=== PATIENT | male | born 1975 | race Caucasian/White ===

== ENCOUNTER 2018-05-07 13:32 | Emergency (ER) | payer OTHER ==
[2018-05-07 14:07] VITALS: RESP 18; TEMP 98.2
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
--- NOTE | 2018-05-07 15:28 | XR ---
EXAMINATION TYPE: XR elbow complete LT, XR forearm RT DATE OF EXAM: 05/07/2018 CLINICAL HISTORY: Left olecranon pain and right mid forearm pain after fall TECHNIQUE: Two views of the left forearm are obtained. Frontal, lateral and oblique images of the ri ght elbow are obtained. COMPARISON: None. FINDINGS: There is no acute fracture or dislocation seen in the right radius or ulna. The right elb ow and wrist joints appear within normal limits. The overlying soft tissue appears within normal oneal its. There is no acute fracture/dislocation evident in the left elbow. No abnormal fat pad signs are seen . The overlying soft tissue appears unremarkable. Mild soft tissue swelling is seen posterior to the distal left humerus. IMPRESSION: 1. No acute fracture or dislocation of the left elbow or right forearm. 2. Nonspecific soft tissue swelling seen over the distal left forearm, mild in degree. If there is pe rsistent pain repeat radiograph could be performed in 7-10 days to evaluate for occult fracture.
[2018-05-07 16:15] VITALS: BP 141/89; PULSE 72
== END 2018-05-07 16:10 | disposition home or self-care (01) ==
LOC: EC 13:32
DX: S29.9XXA Unspecified injury of thorax, initial encounter (principal); S59.912A Unspecified injury of left forearm, initial encounter; S59.911A Unspecified injury of right forearm, initial encounter; M79.89 Other specified soft tissue disorders; M79.603 Pain in arm, unspecified; R40.2412 Glasgow coma scale score 13-15, at arrival to emergency department; I10 Essential (primary) hypertension; Z79.899 Other long term (current) drug therapy; V09.9XXA Pedestrian injured in unspecified transport accident, initial encounter; Y93.89 Activity, other specified; Y92.69 Other specified industrial and construction area as the place of occurrence of the external cause; Y99.0 Civilian activity done for income or pay
CPT/HCPCS: 70450; 72125; 72128; 99284

== ENCOUNTER → 2021-02-27 | Outpatient (CLI) | payer OTHER ==
[2021-02-27 08:17] VITALS: BP 143/82; PULSE 74; RESP 18; TEMP 97.7
--- NOTE | 2021-02-27 08:28 | P.PAINCN ---
History of Present Illness - Reason for Consult Consult date: 02/27/21 - History of Present Illness This is the initial consultation visit for this 46 years old male with 10 month history of severe neck pain with radiation to the shoulder area bilaterally, with occasional numbness and tingling sensation in the upper extremity, patient denies any initiating event he denies any history of trauma, no history of heavy lifting, no history of falling, he reported that the pain is constant and inc reased with any neck movement, or any activity, interfere with the quality of life, he denies any motor or sensory deficit, intensity of the pain is 6-8/10, patient tried physical therapy for 4 months without any benefit, he tried chiropractics without any benefit, he denies any change in the bowel movement or urination, he denies any fever or night sweats Past Medical History Past Medical History: Hypertension Additional Past Medical History / Comment(s): borderline diabetic. heart burn once in a while. History of Any Multi-Drug Resistant Organisms: None Reported Past Surgical History: Orthopedic Surgery, Tonsillectomy Additional Past Surgical History / Comment(s): rt wrist carpal tunnel, lt knee. tonsilectomy Smoking Status: Never smoker Medications and Allergies Home Medications Medication Instructions Recorded Confirmed Type Losartan [Cozaar] 25 mg PO DAILY 05/07/18 05/07/18 History hydroCHLOROthiazide 25 mg PO DAILY 05/07/18 05/07/18 History metFORMIN HCL ER [Glucophage Xr] 02/27/21 History Allergies Allergy/AdvReac Type Severity Reaction Status Date / Time No Known Allergies Allergy Verified 05/07/18 14:07 Physical Exam Vitals: Vital Signs Temp Pulse Resp BP Pulse Ox 02/27/21 08:09 97.7 F 74 18 143/82 92 L Intake and Output 02/26/21 02/27/21 02/27/21 22:59 06:59 14:59 Other: Weight 131.542 kg Physical Examinations : -Constitutiona : Cooperative , not in acute distress . -HEENT : nech : supple , no Lymphadenopathy , normal thyroid size . : eyes : no ptosis , no icterus, no photophobia . - neurologic : Cranial nerve II to XII intact , no focal neurological deffecit . -psychatric : alert , oriented X 3 , appropriate affect , intact judgment and insight . -Lymphatic : no Lymphadenopathy . - musculoskeltal : Cervical Spine motor stregnth in the deltoid and biceps, normal right side , normal Left side motor stregnth biceps and the wrist extensors normal right side ,normal left side . motor stregnth in the triceps muscle . normal Right side , normal Left side deep tendon reflexes normal at the biceps , normal at Brachioradialis , normal at triceps. cervical facet loading test: Positive Bilaterally Spurling test= positive Right , positive left. Neck distraction test= positive Right , positive left. Avi sign= positive right, positive left . Lumber spine moter stegnth lower extremities ,thigh and legs 5/5 Right side , 5/5 Left side Results Comments: MRI of the cervical spine= multilevel cervical degenerative disc disease Assessment and Plan Plan: Assessment and plan=1-cervical radiculopathy. 2-cervical degenerative disc disease. 3-cervical spondylosis. Patient could benefit from cervical epidural steroid injections under fluoroscopy guidance at C6 7 or C7-T1 Time with Patient: Greater than 30 PQRS Measure Charge Sheet Measure #130: Documentation of Current Meds in Medical Chart: Patient's medications documented in chart Measure #226: Tobacco Use: Screen & Cessation Intervention: Pt not a tobacco user Measure #111: Pneumonia Vaccination: Pneumococcal vaccine NOT administered or previously given Measure #47: Advance Care Plan: Advance care planning discussed & documented, pt chose/unable to give Measure #412: Opioid Treatment Agreement: No documentation of signed opioid treatment agreement Measure #408: Opioid Therapy Follow-up Evaluation: Patient had NO f/u eval minimum every 3 months during opioid therapy Measure #317: Preventitive Care & Scrn High Bld Press & F/U: Pre-hypertensive or hypertensive BP documented, pt will f/u with PCP Measure #128: Body Mass Index (BMI) Screening & Follow-up: BMI documented ABOVE normal parameters - f/u documented Measure #131: Pain Assessment & Follow-up: Pain positive & plan documented, Follow-up scheduled Measure #431: Unhealthy Alcohol Use Preventative Care & Scrn: Patient not identified as an unhealthy alcohol user PQRS Narrative: Smoking Status Never smoker Blood Pressure 143/82 Pain Intensity [Bilateral Neck 5 ] Scale Used Numeric (1 - 10) Hx Alcohol Use (MH) Yes: occ Home Medications: Ambulatory Orders Losartan [Cozaar] 25 mg PO DAILY 05/07/18 hydroCHLOROthiazide 25 mg PO DAILY 05/07/18 metFORMIN HCL ER [Glucophage Xr] 02/27/21
== END ==
LOC: PNWHC3 07:39
PROVIDERS: ATTEND Specialist
DX: M47.22 Other spondylosis with radiculopathy, cervical region (principal); M50.30 Other cervical disc degeneration, unspecified cervical region; I10 Essential (primary) hypertension; E11.9 Type 2 diabetes mellitus without complications; Z79.84 Long term (current) use of oral hypoglycemic drugs
CPT/HCPCS: 99211

== ENCOUNTER 2021-03-12 09:12 | Day surgery (SDC) | payer OTHER ==
[~2021-03-12 09:12] MED LIST: LACTATED RINGERS 1,000 ML IV SCH
[2021-03-12 09:32] VITALS: TEMP 97.8
[2021-03-12 09:40] LABS: Glucose,Whole Blood 119 mg/dL (75-99)
[2021-03-12] MEDS ORDERED: DEXAMETHASONE SOD PHOSPHATE 10 MG/ML 1 ML VIAL ONE (10:11)
[2021-03-12] MEDS ORDERED: IOPAMIDOL M200 10 ML VIAL ONE (10:11)
--- NOTE | 2021-03-12 10:26 | P.PCN ---
Date of Procedure: 03/12/21 Procedure(s) Performed: . PROCEDURE 1. Cervical epidural steroid injection under fluoroscopic guidance, C7-T1 (fluoroscopy images available in the radiology department ) 2. Cervical epidurogram. PREOPERATIVE DIAGNOSIS: 1- Cervical Degenerative Disc Diseases 2- Cervical radiculopathy., 3-cervical spondylosis with cervical Facet arthropathy without myelopathy POSTOPERATIVE DIAGNOSIS: : 1- Cervical Degenerative Disc Diseases , 2- Cervical radiculopathy. 3-,cervical spondylosis with cervical Facet arthropathy without myelopathy ANESTHESIA: Local anesthesia with lidocaine 1 % 3 ml only. EBL 0 PROCEDURE INDICATION: The patient with neck pain and radiculitis unresponsive to conservative treatment consents for procedure. PROCEDURE DESCRIPTION / TECHNIQUE: The patient was seen and identified in the preoperative area. Risks, benefits, complications, including but not limited to infections ,bleeding , allergic reactions to the medications ,and not complete pain releife, and alternatives were discussed with the patient, the patient agreed to proceed with the procedure and signed the consent. Patient was taken to the OR and time out was completed. The patient was placed in the prone position on the procedure table. A pillow was placed under the patients chest to increase the cervical interlaminar space. The cervical area was prepped and draped in the usual sterile fashion. Vital signs were closely monitored during the procedur. Using anterior-posterior fluoroscopy, the C7-T1 interlaminar space was identified and the skin over this site was marked and then infiltrated with 1% lidocaine subcutaneously. Subsequently, a 20-gauge 3-1/2-inch Tuohy epidural needle was inserted and advanced toward the epidural space by means of the ``hanging-drop technique and guided by AP and lateral fluoroscopy. The correct needle position in the epidural space was verified with the injection of 2 mL of the water soluble contrast dye Isovue-200 and observing an excellent epidurogram with the epidural spread of the dye, after negative aspiration for blood and CSF and in the absence of paresthesias. Again after negative aspiration, mixture containing 20 mg Dexamethasone and 2 ml of preservative- free normal saline injected and a washout of epidurogram was seen. Needle was w ithdrawn intact, skin was cleansed, and bandages were applied. Complications= none. Disposition= patient was placed in supine position and transferred to the recovery room area in stable condition and there was no evidence of upper or lower extremity motor or sensory deficit after the procedure patient was discharged from recovery room after discharge criteria met and home discharge instructions was given by the staff and patient will follow with the pain clinic in 2-4 weeks
[2021-03-12 10:38] VITALS: RESP 20
[2021-03-12 10:44] VITALS: BP 156/90; PULSE 88
--- NOTE | 2021-03-12 11:45 | FL ---
EXAMINATION TYPE: FL guided pain mgmt statistic DATE OF EXAM: 03/12/2021 CLINICAL HISTORY: Neck pain. TECHNIQUE: Fluoroscopy. COMPARISON: None. FINDINGS: Fluoroscopic guidance was provided during pain relief procedure performed by Dr. Green . A total of 2 seconds of fluoroscopic time was utilized during the procedure and 1 spot image is ac quired. Single image acquired shows needle localization near cervical thoracic spine. IMPRESSION: As Above.
== END 2021-03-12 10:49 | disposition home or self-care (01) ==
LOC: ORPAIN 09:12
PROVIDERS: ATTEND Specialist
DX: M47.22 Other spondylosis with radiculopathy, cervical region (principal); M50.10 Cervical disc disorder with radiculopathy, unspecified cervical region; R73.03 Prediabetes; Z79.84 Long term (current) use of oral hypoglycemic drugs; Z79.82 Long term (current) use of aspirin
CPT/HCPCS: 62321; J1100; Q9966

== ENCOUNTER → 2021-04-08 | Outpatient (CLI) | payer BC ==
[2021-04-08 08:15] VITALS: BP 129/82; PULSE 64; RESP 18; TEMP 97.9
--- NOTE | 2021-04-08 08:37 | P.PN ---
Subjective Progress Note Date: 04/08/21 This follow-up visit for this 46 years old male with a history of severe chronic neck pain with radiation to the upper extremity mainly to the left side, he is diagnosed with cervical radiculopathy, cervical degenerative disc disease, and cervical spondylosis, recently we did cervical epidural steroid injection at C7- T1, he reported that he had almost 80% improvement of his pain, patient done physical therapy without any significant improvement, he tried the home exercises without any benefit, he tried oral steroid and muscle relaxant without any significant improvement, he continued to have some numbness and tingling sensation mainly in the left upper extremity, he denies any motor or sensory deficit, he denies any fever or night sweats, Physical Examinations : -Constitutiona : Cooperative , not in acute distress . -HEENT : nech : supple , no Lymphadenopathy , normal thyroid size . : eyes : no ptosis , no icterus, no photophobia . - neurologic : Cranial nerve II to XII intact , no focal neurological deffecit . -psychatric : alert , oriented X 3 , appropriate affect , intact judgment and insight . -Lymphatic : no Lymphadenopathy . - musculoskeltal : Cervical Spine motor stregnth in the deltoid and biceps, normal right side , normal Left side motor stregnth biceps and the wrist extensors normal right side ,normal left side . motor stregnth in the triceps muscle . normal Right side , normal Left side deep tendon reflexes normal at the biceps , normal at Brachioradialis , normal at triceps. cervical facet loading test: Positive Bilaterally Spurling test= positive Right , positive left. Neck distraction test= positive Right , positive left. Avi sign= positive right, positive left . Lumber spine moter stegnth lower extremities ,thigh and legs 5/5 Right side , 5/5 Left side Results Comments: MRI of the cervical spine= multilevel cervical degenerative disc disease Assessment and Plan Plan: Assessment and plan=1-cervical radiculopathy. 2-cervical degenerative disc disease. 3-cervical spondylosis. Patient could benefit from cervical epidural steroid injections under fluoroscopy guidance at C6 7 or C7-T1( left paramedial ) Time with Patient: less than 30 - PQRS measures = - Patient's medications are documented in the chart. -Tobacco use is negative and counseling.Given. -Patient's has not received pneumococcal vaccine. -Advanced care planning discussed, patient not eligible. -Opiate contract not signed. -Pain positive and follow-up visit/procedure is scheduled. -Patient's blood pressure measured [124/82 ] , and documented in the record ,and patient will follow up with the primary care. -Patient's weight was measured and body mass index [ 40.2] above the normal limits and counseling was done. and patient instructed to follow-up with the primary care physician. -Patient was not identified as an unhealthy alcohol user Objective - Vital Signs Vital signs: Vital Signs Temp 97.9 F 04/08/21 08:11 Pulse 64 04/08/21 08:11 Resp 18 04/08/21 08:11 BP 129/82 04/08/21 08:11 Pulse Ox 99 04/08/21 08:11
== END ==
LOC: PNWHC3 07:46
PROVIDERS: ATTEND Specialist
DX: M50.10 Cervical disc disorder with radiculopathy, unspecified cervical region (principal); M47.22 Other spondylosis with radiculopathy, cervical region
CPT/HCPCS: 99211

== ENCOUNTER 2021-05-07 12:43 | Day surgery (SDC) | payer BC ==
[2021-05-06 09:41] VITALS: BMI 40.4
[2021-05-07 13:15] VITALS: TEMP 97.2
[2021-05-07 13:19] LABS: Glucose,Whole Blood 92 mg/dL (75-99)
[2021-05-07] MEDS ORDERED: IOPAMIDOL M200 10 ML VIAL ONE (13:34)
[2021-05-07] MEDS ORDERED: DEXAMETHASONE SOD PHOSPHATE 10 MG/ML 1 ML VIAL ONE (13:34)
--- NOTE | 2021-05-07 13:46 | P.PCN ---
Date of Procedure: 05/07/21 Procedure(s) Performed: PROCEDURE 1. Cervical epidural steroid injection under fluoroscopic guidance, C7-T1 (fluoroscopy images available in the radiology department ) 2. Cervical epidurogram. PREOPERATIVE DIAGNOSIS: 1- Cervical Degenerative Disc Diseases 2- Cervical radiculopathy., 3-cervical spondylosis with cervical Facet arthropathy without myelopathy POSTOPERATIVE DIAGNOSIS: : 1- Cervical Degenerative Disc Diseases , 2- Cervical radiculopathy. 3-,cervical spondylosis with cervical Facet arthropathy without myelopathy ANESTHESIA: Local anesthesia with lidocaine 1 % 3 ml only. EBL 0 PROCEDURE INDICATION: The patient with neck pain and radiculitis unresponsive to conservative treatment consents for procedure. PROCEDURE DESCRIPTION / TECHNIQUE: The patient was seen and identified in the preoperative area. Risks, benefits, complications, including but not limited to infections ,bleeding , allergic reactions to the medications ,and not complete pain releife, and alternatives were discussed with the patient, the patient agreed to proceed with the procedure and signed the consent. Patient was taken to the OR and time out was completed. The patient was placed in the prone position on the procedure table. A pillow was placed under the patients chest to increase the cervical interlaminar space. The cervical area was prepped and draped in the usual sterile fashion. Vital signs were closely monitored during the procedur. Using anterior-posterior fluoroscopy, the C7-T1 interlaminar space was identified and the skin over this site was marked and then infiltrated with 1% lidocaine subcutaneously. Subsequently, a 20-gauge 3-1/2-inch Tuohy epidural needle was inserted and advanced toward the epidural space by means of the ``hanging-drop technique and guided by AP and lateral fluoroscopy. The correct needle position in the epidural space was verified with the injection of 2 mL of the water soluble contrast dye [id number]-200 and observing an excellent epidurogram with the epidural spread of the dye, after negative aspiration for blood and CSF and in the absence of paresthesias. Again after negative aspiration, mixture containing 20 mg Dexamethasone and 2 ml of preservative- free normal saline injected and a washout of epidurogram was seen. Needle was withdrawn intact, skin was cleansed, and bandages were applied. Complications= none. Disposition= patient was placed in supine position and transferred to the recovery room area in stable condition and there was no evidence of upper or lower extremity motor or sensory deficit after the procedure patient was discharged from recovery room after discharge criteria met and home discharge instructions was given by the staff and patient will follow with the pain clinic in 2-4 weeks
[2021-05-07 14:09] VITALS: RESP 16
[2021-05-07 14:10] VITALS: BP 136/76; PULSE 73
--- NOTE | 2021-05-07 14:51 | FL ---
EXAMINATION TYPE: FL guided pain mgmt statistic DATE OF EXAM: 05/07/2021 HISTORY: Fluoroscopy time 2 seconds of fluoroscopy provided. IMPRESSION: 1. Fluoroscopy time.
== END 2021-05-07 14:20 | disposition home or self-care (01) ==
LOC: ORPAIN 12:43
PROVIDERS: ATTEND Specialist
DX: M50.10 Cervical disc disorder with radiculopathy, unspecified cervical region (principal); M47.812 Spondylosis without myelopathy or radiculopathy, cervical region; Z79.82 Long term (current) use of aspirin; R73.03 Prediabetes
CPT/HCPCS: 62321; J1100; Q9966

== ENCOUNTER → 2021-05-27 | Outpatient (CLI) | payer BC ==
[2021-05-27 14:01] VITALS: BP 169/85; PULSE 90; RESP 18; TEMP 98.3
--- NOTE | 2021-05-27 14:33 | P.PN ---
Subjective Progress Note Date: 05/27/21 This follow-up visit for this 46 years old male with a history of severe chronic neck pain with radiation to the upper extremity mainly to the left side, he is diagnosed with cervical radiculopathy, cervical degenerative disc disease, and cervical spondylosis, recently we did cervical epidural steroid injection x2 , he reported that he had almost 90% improvement of his pain, patient done physical therapy without any significant improvement, he tried the home exercises without any benefit, he tried oral steroid and muscle relaxant without any significant improvement, he continued to have some numbness and tingling sensation mainly in the left upper extremity, he denies any motor or sensory deficit, he denies any fever or night sweats, Physical Examinations : -Constitutiona : Cooperative , not in acute distress . -HEENT : nech : supple , no Lymphadenopathy , normal thyroid size . : eyes : no ptosis , no icterus, no photophobia . - neurologic : Cranial nerve II to XII intact , no focal neurological deffecit . -psychatric : alert , oriented X 3 , appropriate affect , intact judgment and insight . -Lymphatic : no Lymphadenopathy . - musculoskeltal : Cervical Spine motor stregnth in the deltoid and biceps, normal right side , normal Left side motor stregnth biceps and the wrist extensors normal right side ,normal left side . motor stregnth in the triceps muscle . normal Right side , normal Left side deep tendon reflexes normal at the biceps , normal at Brachioradialis , normal at triceps. cervical facet loading test: Positive Bilaterally Spurling test= positive Right , positive left. Neck distraction test= positive Right , positive left. Avi sign= positive right, positive left . Lumber spine moter stegnth lower extremities ,thigh and legs 5/5 Right side , 5/5 Left side Results MRI of the cervical spine= multilevel cervical degenerative disc disease Assessment and Plan Plan: Assessment and plan=1-cervical radiculopathy. 2-cervical degenerative disc disease. 3-cervical spondylosis. Pain improvement 90% after cervical epidural steroid injection x2 , and is having mainly numbness and tingling sensation in his Upper extremities bilaterally Patient could benefit from regretfully 5 mg twice a day dispense 60 with 2 refills risk ,benefits and alternative and side effect of the medication discussed with the patient, he want to proceed Patient signed narcotic agreement Time with Patient: less than 30 - PQRS measures = - Patient's medications are documented in the chart. -Tobacco use is negative and counseling.Given. -Patient's has not received pneumococcal vaccine. -Advanced care planning discussed, patient not eligible. -Opiate contract signed. -Pain positive and follow-up visit/procedure is scheduled. -Patient's blood pressure measured [169/85 ] , and documented in the record ,and patient will follow up with the primary care. -Patient's weight was measured and body mass index [ 40.2] above the normal limits and counseling was done. and patient instructed to follow-up with the primary care physician. -Patient was not identified as an unhealthy alcohol user Objective - Vital Signs Vital signs: Vital Signs Temp 98.3 F 05/27/21 13:56 Pulse 90 05/27/21 13:56 Resp 18 05/27/21 13:56 BP 169/85 05/27/21 13:56 Pulse Ox 95 05/27/21 13:56
== END ==
LOC: PNWHC3 13:51
PROVIDERS: ATTEND Specialist
DX: M47.22 Other spondylosis with radiculopathy, cervical region (principal); M50.30 Other cervical disc degeneration, unspecified cervical region
CPT/HCPCS: 99211

== ENCOUNTER → 2021-06-24 | Outpatient (CLI) | payer BC ==
[2021-06-24 07:45] VITALS: BP 156/81; PULSE 66; RESP 18; TEMP 98.1
--- NOTE | 2021-06-24 07:49 | P.PN ---
Subjective Progress Note Date: 06/24/21 This follow-up visit for this 46 years old male with a history of severe chronic neck pain with radiation to the upper extremity mainly to the left side, he is diagnosed with cervical radiculopathy, cervical degenerative disc disease, and cervical spondylosis, previously we did cervical epidural steroid injection x2 , he reported that he had significant improvement of his pain, patient done physical therapy without any significant improvement, he tried the home exercises without any benefit, he tried oral steroid ,and muscle relaxant without any significant improvement, he continued to have pain ,and numbness and tingling sensation mainly in the left upper extremity, he denies any motor or sensory deficit, he denies any fever or night sweats, last visit patient was given prescription for Lyrica 25 mg twice a day, but patient did not refill it because he is concerned about the side effects of the medication Physical Examinations : -Constitutiona : Cooperative , not in acute distress . -HEENT : nech : supple , no Lymphadenopathy , normal thyroid size . : eyes : no ptosis , no icterus, no photophobia . - neurologic : Cranial nerve II to XII intact , no focal neurological deffecit . -psychatric : alert , oriented X 3 , appropriate affect , intact judgment and insight . -Lymphatic : no Lymphadenopathy . - musculoskeltal : Cervical Spine motor stregnth in the deltoid and biceps, normal right side , normal Left side motor stregnth biceps and the wrist extensors normal right side ,normal left side . motor stregnth in the triceps muscle . normal Right side , normal Left side deep tendon reflexes normal at the biceps , normal at Brachioradialis , normal at triceps. cervical facet loading test: Positive Bilaterally Spurling test= positive Right , positive left. Neck distraction test= positive Right , positive left. Avi sign= positive right, positive left . Lumber spine moter stegnth lower extremities ,thigh and legs 5/5 Right side , 5/5 Left side Results MRI of the cervical spine= multilevel cervical degenerative disc disease Assessment and Plan Plan: Assessment and plan=1-cervical radiculopathy. 2-cervical degenerative disc disease. 3-cervical spondylosis. Status post cervical epidural steroid injection x2 , Patient could benefit from ibuprofen 800 mg every 8 hours when necessary Patient concerned about side effect of Lyrica does not want to take any controlled substance he could benefit from a third cervical epidural steroid injection at C7-T1 Time with Patient: less than 30 - PQRS measures = - Patient's medications are documented in the chart. -Tobacco use is negative and counseling.Given. -Patient's has not received pneumococcal vaccine. -Advanced care planning discussed, patient not eligible. -Opiate contract signed. -Pain positive and follow-up visit/procedure is scheduled. -Patient's blood pressure measured [156/81 ] , and documented in the record ,and patient will follow up with the primary care. -Patient's weight was measured and body mass index [ 40.2] above the normal limits and counseling was done. and patient instructed to follow-up with the primary care physician. -Patient was not identified as an unhealthy alcohol user Objective - Vital Signs Vital signs: Vital Signs Temp 98.1 F 06/24/21 07:38 Pulse 66 06/24/21 07:38 Resp 18 06/24/21 07:38 BP 156/81 06/24/21 07:38 Pulse Ox 97 06/24/21 07:38
== END | disposition home or self-care (01) ==
LOC: PNWHC3 07:09
PROVIDERS: ATTEND Specialist
DX: M50.30 Other cervical disc degeneration, unspecified cervical region (principal); M47.22 Other spondylosis with radiculopathy, cervical region
CPT/HCPCS: 99211

== ENCOUNTER 2021-07-18 11:48 | Day surgery (SDC) | payer BC ==
[2021-07-15 10:31] VITALS: BMI 42.1
[2021-07-18 12:23] VITALS: TEMP 98.2
[2021-07-18 12:25] LABS: Glucose,Whole Blood 94 mg/dL (75-99)
[2021-07-18] MEDS ORDERED: IOPAMIDOL M200 10 ML VIAL ONE (12:27)
[2021-07-18] MEDS ORDERED: DEXAMETHASONE SOD PHOSPHATE 10 MG/ML 1 ML VIAL ONE (12:27)
--- NOTE | 2021-07-18 12:41 | P.PCN ---
Date of Procedure: 07/18/21 Description of Procedure: Diagnosis: Cervical radiculopathy Cervical degenerative disc disease POSTOPERATIVE DIAGNOSIS: Diagnoses: Cervical radiculopathy Cervical degenerative disc disease PROCEDURE Cervical Epidural steroid injection under fluoroscopic guidance at the C7-T1 interspace using leftparamedian approach Cervical epidurogram ANESTHESIA: Local with 1% lidocaine 3 ml Fluoroscopy was used for the procedure and images were saved in the radiology portion of the chart. EBL: Minimal PROCEDURE INDICATION: The patient presents with cervical radicular symptoms unresponsive to conservative treatment. This is the second cervical epidural steroid injection. PROCEDURE DESCRIPTION / TECHNIQUE: The patient was seen and identified in the preoperative area. Risks, benefits, complications including but not limited to infections ,bleeding ,allergic reaction to the medications ,nerve damage and incomplete pain relief, and alternatives were discussed with the patient. The patient agreed to proceed with the procedure and signed the consent. IV was started, and vital signs were stabl e. Patient was taken to the OR and time out was completed. The patient was placed in the prone position on procedure table and a pillow was placed under the chest area. The cervical area was prepped and draped in the usual sterile fashion. Conscious sedation was used during the procedure to decrease patients anxiety. Vital signs was monitored during the entire procedure. Using anterior-posterior fluoroscopy, the C7-T1 interlaminar space was identified and the skin over this site was marked and then infiltrated with 1% lidocaine subcutaneously. Subsequently, a 20-gauge Tuohy epidural needle was inserted and advanced toward the epidural space using the loss of resistance technique and guided by AP and 50 oblique fluoroscopy. The correct needle position in the epidural space was verified. After negative aspiration for blood and CSF and in the absence of paresthesias, Isovue 200 2 mL's was injected under live fluoroscopy with good epidural spread. After negative aspiration, a 4 ml mixture containing 10 mg of dexamethasone, 3 mL of preservative free normal saline was injected. Needle was withdrawn intact, skin was cleansed, and bandages were applied. COMPLICATIONS: None DISPOSITION / PLANS: The patient was placed in a supine position and transferred to the recovery area in a stable condition for observation. There was no evidence of lower extremity motor or sensory deficit after the procedure. Patient was discharged from the recovery room after meeting discharge criteria. Home discharge instructions were given to the patient by the staff. The patient will be scheduled a [follow up/repeat procedure] in the clinic in 2-4 weeks.
--- NOTE | 2021-07-18 12:58 | FL ---
Fluoroscopy HISTORY: Pain 8 seconds fluoroscopy time supplied to the referring clinician. 2 intraoperative C-arm images docume nt the procedure. See dictated report from anesthesia.
[2021-07-18 13:00] VITALS: RESP 20
[2021-07-18 13:13] VITALS: BP 122/76; PULSE 70
== END 2021-07-18 13:14 | disposition home or self-care (01) ==
LOC: ORPAIN 11:48
PROVIDERS: ATTEND Anesthesiology
DX: M50.13 Cervical disc disorder with radiculopathy, cervicothoracic region (principal)
CPT/HCPCS: 62321; J1100; Q9966

== ENCOUNTER → 2021-08-19 | Outpatient (CLI) | payer BC ==
[2021-08-19 11:05] VITALS: BP 177/81; PULSE 70; RESP 18; TEMP 97.4
--- NOTE | 2021-08-19 11:16 | P.PN ---
Progress Note - Text Progress Note Date: 08/19/21 This follow-up visit for this 46 years old male with a history of severe chronic neck pain with radiation to the upper extremity mainly to the left side, he is diagnosed with cervical radiculopathy, cervical degenerative disc disease, and cervical spondylosis, previously we did cervical epidural steroid injection x2 , he reported that he had significant improvement of his pain, patient done physical therapy without any significant improvement, he tried the home exercises without any benefit, he tried oral steroid ,and muscle relaxant without any significant improvement, he continued to have pain ,and numbness and tingling sensation mainly in the left upper extremity, he denies any motor or sensory deficit, he denies any fever or night sweats, last visit patient was given prescription for Lyrica 25 mg twice a day, but patient did not refill it because he is concerned about the side effects of the medication Physical Examinations : -Constitutiona : Cooperative , not in acute distress . -HEENT : nech : supple , no Lymphadenopathy , normal thyroid size . : eyes : no ptosis , no icterus, no photophobia . - neurologic : Cranial nerve II to XII intact , no focal neurological deffecit . -psychatric : alert , oriented X 3 , appropriate affect , intact judgment and insight . -Lymphatic : no Lymphadenopathy . - musculoskeltal : Results MRI of the cervical spine= multilevel cervical degenerative disc disease Assessment and plan=1-cervical radiculopathy. 2-cervical degenerative disc disease. 3-cervical spondylosis. Status post cervical epidural steroid injection x3 , Patient could benefit from ibuprofen 800 mg every 8 hours when necessary Patient concerned about side effect of Lyrica does not want to take any controlled substance Pain improved after cervical epidural steroid injection he continues to have some numbness, patient given prescription refill for Motrin 800 mg every 8 hours when necessary is 90 with 2 refills, he will follow up in the pain clinic PRN Time with Patient: less than 30 - PQRS measures = - Patient's medications are documented in the chart. -Tobacco use is negative and counseling.Given. -Patient's has not received pneumococcal vaccine. -Advanced care planning discussed, patient not eligible. -Opiate contract not signed. -Pain positive and follow-up visit/procedure is scheduled. -Patient's blood pressure measured [177/81 ] , and documented in the record ,and patient will follow up with the primary care. -Patient's weight was measured and body mass index [ 40.2] above the normal limits and counseling was done. and patient instructed to follow-up with the primary care physician. -Patient was not identified as an unhealthy alcohol user
== END | disposition home or self-care (01) ==
LOC: PNWHC3 10:55
PROVIDERS: ATTEND Specialist
DX: M50.10 Cervical disc disorder with radiculopathy, unspecified cervical region (principal); M47.892 Other spondylosis, cervical region
CPT/HCPCS: 99211